=== PATIENT | male | born 1985 | race Caucasian/White ===

== ENCOUNTER 2017-08-04 14:45 | Outpatient (CLI) | payer SELFPAY | END 2017-08-04 14:46 | disposition home or self-care (01) | LOC: BICRAD 14:45 | PROVIDERS: ATTEND Internal Medicine | DX: Z02.71 Encounter for disability determination (principal); M47.892 Other spondylosis, cervical region | CPT/HCPCS: 72040 ==

== ENCOUNTER 2020-06-21 07:49 | Emergency (ER) | payer SELFPAY ==
[2020-06-21] MEDS ORDERED: cefTRIAXone\\ROCEPHIN 250 MG VIAL ONE (08:54)
[2020-06-21] MEDS ORDERED: Azithromycin 250 MG TAB ONE (08:54)
[2020-06-21] MEDS ORDERED: Lidocaine 1% PF 5 ML VIAL ONE (08:54)
[2020-06-21 09:42] LABS: Bilirubin Negative (Negative); Blood, Urine Trace (Negative); Glucose, Urine (Dipstick) Negative (Negative); Ketone, Urine Negative (Negative); Leukocyte Negative (Negative); Nitrite Negative (Negative); Protein, Urine (Dipstick) Trace mg/dL (Neg-Trace); Urobilinogen 0.2 mg/dL (Less than 2)
[2020-06-21 09:53] LABS: Clarity Cloudy (Clear)
[2020-06-21 09:54] LABS: Specific Gravity, Urine 1.039 (1.002-1.036)
[2020-06-21 09:56] LABS: Bacteria/HPF Rare-Few HPF (None Seen); RBC/HPF 0-3 HPF (0-3); Squamous Epithelial 0-3 HPF (0-3); WBC/HPF Greater Than 50 HPF (0-3)
[2020-06-22 20:57] LABS: Chlam.trachomatis by PCR,Urine Not Detected (NotDetected)
== END 2020-06-21 10:02 | disposition left against medical advice (07) ==
LOC: ERS 07:49
DX: A64 Unspecified sexually transmitted disease (principal)
CPT/HCPCS: 81003; 87086; 87491; 87591; 96372; 99283; J0696

== ENCOUNTER 2021-07-29 16:52 | Emergency (ER) | payer SELFPAY | END 2021-07-29 17:45 | disposition home or self-care (01) | LOC: ERS 16:52 | DX: J06.9 Acute upper respiratory infection, unspecified (principal); Z20.822 Contact with and (suspected) exposure to COVID-19 | CPT/HCPCS: 99283 ==

== ENCOUNTER 2021-12-17 10:45 | Emergency (ER) | payer SELFPAY ==
[2021-12-17] MEDS ORDERED: Ketorolac Tromethamine 30 MG/ML VIAL ONE (12:18)
[2021-12-17] MEDS ORDERED: traMADol HCl 50 MG TAB ONE (12:19)
== END 2021-12-17 12:52 | disposition home or self-care (01) ==
LOC: ERS 10:45
DX: S92.001A Unspecified fracture of right calcaneus, initial encounter for closed fracture (principal); W17.89XA Other fall from one level to another, initial encounter; Y93.39 Activity, other involving climbing, rappelling and jumping off
CPT/HCPCS: 29515; 96372; J1885